=== PATIENT | male | born 1975 | race Two or more races ===

== ENCOUNTER 2020-01-30 19:49 | Emergency (ER) | payer MEDICAID ==
[~2020-01-30] VITALS: Ht 162.6 cm; Wt 61.2 kg
[2020-01-30 20:04] VITALS: BP 114/70
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
[2020-01-30] MEDS ORDERED: Acetaminophen 500mg (ES) tab ORAL ONE (20:30)
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
[2020-01-30] MEDS ORDERED: LIDODERM700 M1 TOPIC (20:56)
[2020-01-30] MEDS ORDERED: TYLENOL EXTRA500 MG ORAL (20:56)
[2020-01-30] MEDS ORDERED: ROBAXIN-750750 MG PO (20:56)
[2020-01-30 21:10] VITALS: BP 113/66
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
== END 2020-01-30 21:10 | disposition home or self-care (01) ==
LOC: EMR 20:20
DX: M54.6 Pain in thoracic spine (principal); T14.8XXA Other injury of unspecified body region, initial encounter; R51.9 Headache, unspecified; M79.601 Pain in right arm; M54.5 Low back pain; V43.52XA Car driver injured in collision with other type car in traffic accident, initial encounter; Y92.410 Unspecified street and highway as the place of occurrence of the external cause
CPT/HCPCS: 99282